=== PATIENT | female | born 1995 | race African-American/Black ===

== ENCOUNTER 2024-07-20 05:36 | Emergency (ER) | payer BC, MEDICAID ==
[~2024-07-20] VITALS: Ht 160 cm; Wt 69.0 kg
[2024-07-20 05:43] VITALS: BP 106/63; PULSE 81; RESP 20; O2SAT 100
[2024-07-20] MEDS ORDERED: DIPH25CA83 PO (05:55)
[2024-07-20] MEDS ORDERED: TOPUD PO (05:55)
[2024-07-20] MEDS ORDERED: ONDA4TAB50 PO (05:55)
[2024-07-20 06:08] VITALS: TEMP 98.8
[2024-07-20] MEDS: DIPHENHYDRAMINE 25MG CAPSULE PO ONE (06:08)
[2024-07-20] MEDS: ONDANSETRON 4MG ODT PO STA (06:08)
[2024-07-20] MEDS: ACETAMINOPHEN 325MG TABLET PO ONE (06:08)
[2024-07-20 06:33] LABS: BASOPHILS % 0.3 % (0.0-2.0); EOSINOPHILS % 1.7 % (0.0-5.0); HEMATOCRIT. 34.2 % (36.0-48.0); HEMOGLOBIN. 11.8 g/dL (12.0-16.0); LYMPHOCYTES % 12.9 % (20.0-50.0); MEAN CORPUSCULAR HEMOGLOBIN 30.8 pg (28.0-32.0); MEAN CORPUSCULAR HGB CONC 34.4 g/dL (31.0-37.0); MEAN CORPUSCULAR VOLUME 89.5 fL (81.0-99.0); MEAN PLATELET VOLUME 9.3 fl (7.4-10.4); MONOCYTES % 6.2 % (2.0-8.0); NEUTROPHILS % 78.9 % (40.0-76.0); PLATELET 142 x1000/uL (130-400); RED BLOOD CELL COUNT 3.82 mill/uL (4.2-5.4); RED CELL DISTRIBUTION WIDTH 12.9 % (11.6-14.6); WHITE BLOOD COUNT 3.5 x1000/uL (4.5-11.0)
[2024-07-20 06:40] LABS: CARBON DIOXIDE 27 mEq/L (21-32); CHLORIDE 101 mEq/L (98-107); POTASSIUM 3.7 mEq/L (3.5-5.1); SODIUM 135 mEq/L (136-145)
[2024-07-20 06:46] LABS: GLUCOSE 108 mg/dL (70-105); UREA NITROGEN BLOOD 7 mg/dL (9-23)
[2024-07-20 06:47] LABS: ALANINE AMINOTRANSFERASE 20 IU/L (10-49); ALBUMIN 4.7 g/dL (3.2-4.8); ASPARTATE AMINOTRANSFERASE 30 IU/L (<34)
[2024-07-20 06:48] LABS: BILIRUBIN DIRECT 0.2 mg/dL (<=3.0); BILIRUBIN TOTAL 0.7 mg/dL (0.1-1.0)
[2024-07-20 07:09] LABS: ETHANOL BLOOD < 10 mg/dL (<10)
[2024-07-21] MEDS ORDERED: P20 PO (18:42)
[2024-07-21] MEDS ORDERED: DIPH25CA83 MT (18:42)
== END 2024-07-20 07:25 | disposition home or self-care (01) ==
LOC: ER 05:36
DX: R11.2 Nausea with vomiting, unspecified (principal); T50.6X5A Adverse effect of antidotes and chelating agents, initial encounter; L21.0 Seborrhea capitis; F12.90 Cannabis use, unspecified, uncomplicated; Y92.89 Other specified places as the place of occurrence of the external cause
CPT/HCPCS: 80076; 80048; 80320; 83690; 85025; 36415; 99284; Q0163; Q0162; G0480

== ENCOUNTER 2024-07-21 14:40 | Emergency (ER) | payer BC, MEDICAID ==
[~2024-07-21] VITALS: Ht 162.6 cm; Wt 50.0 kg
[~2024-07-21 14:40] MED LIST: DIPH25CA83 PO; ONDA4TAB50 PO; TOPUD PO
[2024-07-21 14:46] VITALS: O2SAT 100
[2024-07-21 17:57] LABS: CLARITY URINE CLEAR (CLEAR); COLOR URINE YELLOW (YELLOW); GLUCOSE URINE NEGATIVE (NEGATIVE); KETONES URINE NEGATIVE (NEGATIVE); LEUKOCYTE ESTERASE URINE NEGATIVE (NEGATIVE); NITRITE URINE NEGATIVE (NEGATIVE); OCCULT BLOOD URINE NEGATIVE (NEGATIVE); PH URINE 6.5 (4.5-8.0); PROTEIN URINE NEGATIVE (NEGATIVE); SPECIFIC GRAVITY URINE 1.015 (1.005-1.030)
[2024-07-21] MEDS: METHYLPREDNISOLONE SOD SUCC 125MG/2ML (ACT-O-VIAL) IM STA (18:33)
[2024-07-21] MEDS ORDERED: DIPH25CA83 MT (18:42)
[2024-07-21] MEDS ORDERED: P20 PO (18:42)
[2024-07-21] MEDS: ACETAMINOPHEN 325MG TABLET PO STA (18:47)
[2024-07-21 19:03] VITALS: BP 135/78; PULSE 71; RESP 18; TEMP 37.05852; O2SAT 100
== END 2024-07-21 19:28 | disposition home or self-care (01) ==
LOC: ER 14:44
DX: T78.40XA Allergy, unspecified, initial encounter (principal); X58.XXXA Exposure to other specified factors, initial encounter
CPT/HCPCS: 81003; 81025; 96372; 99283; J2919; Z7610

== ENCOUNTER 2025-06-28 17:14 | Emergency (ER) | payer BC, OTHER ==
[~2025-06-28] VITALS: Ht 160 cm; Wt 64.0 kg
[~2025-06-28 17:14] MED LIST changes: +DIPH25CA83 MT; +P20 PO
[2025-06-28 17:21] VITALS: O2SAT 99
[2025-06-28 18:15] LABS: CLARITY URINE CLEAR (CLEAR); COLOR URINE YELLOW (YELLOW); GLUCOSE URINE NEGATIVE (NEGATIVE); KETONES URINE NEGATIVE (NEGATIVE); LEUKOCYTE ESTERASE URINE 1+ (NEGATIVE); NITRITE URINE NEGATIVE (NEGATIVE); OCCULT BLOOD URINE NEGATIVE (NEGATIVE); PH URINE 8.0 (4.5-8.0); PROTEIN URINE NEGATIVE (NEGATIVE); SPECIFIC GRAVITY URINE 1.024 (1.005-1.030); UROBILINOGEN URINE 1.0 E.U./dL (0.2-1.0)
[2025-06-28 18:30] LABS: BACTERIA URINE 2+; RBC URINE NONE SEEN /hpf (0-2); SQUAMOUS EPITHELIAL CELL URINE 1+ /lpf (RARE/1+); WBC URINE 0-2 /hpf (0-2)
[2025-06-28 18:40] LABS: BASOPHILS % 0.2 % (0.0-2.0); EOSINOPHILS % 1.4 % (0.0-5.0); HEMATOCRIT. 32.5 % (36.0-48.0); HEMOGLOBIN. 10.9 g/dL (12.0-16.0); LYMPHOCYTES % 27.1 % (20.0-50.0); MEAN PLATELET VOLUME 9.0 fl (7.4-10.4); MONOCYTES % 7.5 % (2.0-8.0); NEUTROPHILS % 63.8 % (40.0-76.0); PLATELET 160 x1000/uL (130-400); RED BLOOD CELL COUNT 3.58 mill/uL (4.2-5.4); RED CELL DISTRIBUTION WIDTH 13.0 % (11.6-14.6)
[2025-06-28 18:58] LABS: HCG SCREEN NEGATIVE
[2025-06-28 19:00] LABS: CREATININE 0.7 mg/dL (0.6-1.0); UREA NITROGEN BLOOD 7 mg/dL (9-23)
[2025-06-28 19:02] LABS: ASPARTATE AMINOTRANSFERASE 18 IU/L (<34); BILIRUBIN DIRECT 0.3 mg/dL (<=3.0); BILIRUBIN TOTAL 0.9 mg/dL (0.1-1.0); PROTEIN TOTAL 7.6 g/dL (6.0-8.3)
[2025-06-28] MEDS ORDERED: DOXY100T2 MT (22:26)
[2025-06-28] MEDS ORDERED: METR-167 MT (22:26)
[2025-06-28] MEDS: CEFTRIAXONE SODIUM 500MG VIAL IM ONE (22:44)
[2025-06-28 22:52] VITALS: BP 109/75; PULSE 73; RESP 16; TEMP 36.9; O2SAT 99
== END 2025-06-28 22:52 | disposition home or self-care (01) ==
LOC: ER 17:24
DX: N73.9 Female pelvic inflammatory disease, unspecified (principal); F12.90 Cannabis use, unspecified, uncomplicated; Z79.52 Long term (current) use of systemic steroids; Z79.899 Other long term (current) drug therapy
CPT/HCPCS: 80076; 80048; 81003; 81025; 84703; 83690; 85025; 36415; 76830; 76856; 96372; 99285; J0696; Z7610 ×2